=== PATIENT | male | born 1980 | race Hispanic/Latino ===

== ENCOUNTER 2020-02-19 19:03 | Emergency (ER) | payer OTHER ==
[~2020-02-19] VITALS: Ht 175.3 cm; Wt 81.8 kg
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
[2020-02-19 23:04] VITALS: BP 151/85
== END 2020-02-19 23:56 | disposition home or self-care (01) ==
LOC: M ED 19:03
DX: S50.12XA Contusion of left forearm, initial encounter (principal); R51.9 Headache, unspecified; M54.2 Cervicalgia; V43.52XA Car driver injured in collision with other type car in traffic accident, initial encounter; Y92.410 Unspecified street and highway as the place of occurrence of the external cause